=== PATIENT | female | born 1990 | race Caucasian/White ===

== ENCOUNTER 2020-09-25 12:05 | Inpatient (IN) ==
[2020-09-25] MEDS ORDERED: Lactated Ringers 1000 ml BAG 1,000 ML IV ONE ×2 (13:29→16:08)
[2020-09-25] MEDS ORDERED: Buffered Lidocaine 1% SYRIN 1 ml INTRADERM ONE (13:29)
[2020-09-25] MEDS ORDERED: Lactated Ringers 1000 ml BAG 1,000 ML IV SCH ×3 (14:00→20:00)
[2020-09-25 14:15] LABS: ABS Eosinophils 0.1 10^3/ul (0-0.6); ABS Lymphocytes 1.5 10^3/ul (1.0-4.8); ABS Monocytes 0.6 10^3/ul (0-0.8); ABS Neutrophils 7.9 10^3/ul (1.5-7.7); Eosinophil % 1.2 %; Hematocrit 38 % (35-47); Hemoglobin 12.3 g/dL (12.0-16.0); Mean Corpuscular HGB Conc 33 g/dL (31-36); Mean Corpuscular Hemoglobin 27 pg (27-31); Mean Corpuscular Volume 82 fL (80-97); Mean Platelet Volume 7.8 fL (7.4-10.4); Platelet Count 207 10^3/uL (150-450); Red Blood Count 4.62 10^6 /uL (3.70-4.87); Red Cell Distribution Width 15 % (10-15); White Blood Count 10.1 10^3/uL (3.5-10.8)
[2020-09-25 15:06] LABS: Urine Benzodiazepine Screen None Detected (None Detect); Urine Cannabinoids Screen None Detected (None Detect); Urine Opiates Screen None Detected (None Detect)
[2020-09-25] MEDS ORDERED: OBEPIDURAL 250 ML EPIDURAL ONE (15:25)
[2020-09-25] MEDS ORDERED: Sodium Citrate/Citric Acid LIQ 15 ML UDC PO PRN (16:08)
[2020-09-25] MEDS ORDERED: Phenylephrine 40 mcg/mL 10mL (400mcg) SYRINGE IV PUSH PRN ×2 (16:08)
[2020-09-25] MEDS ORDERED: fentaNYL 100 mcg/2 ml 50 MCG/ML VIAL ONE ×2 (16:20→16:53)
[2020-09-25] MEDS ORDERED: fentaNYL 100 mcg/2 ml 50 MCG/ML VIAL IV SLOW PU ONE (16:21)
[2020-09-25] MEDS ORDERED: OBEPIDURAL 250 ML EPIDURAL SCH (17:00)
[2020-09-25] MEDS ORDERED: Oxytocin in LR 20 UNITS/1,000 ML BAG IVPB ONE (18:53)
[2020-09-25] MEDS ORDERED: Dibucaine 1% OINT 28.35 GM TUBE PR PRN (19:55)
[2020-09-25] MEDS ORDERED: Glycerin ADULT 2.4 gm SUPP PR PRN (19:55)
[2020-09-25] MEDS ORDERED: Witch Hazel PAD JAR TOPICAL PRN (19:55)
[2020-09-25] MEDS ORDERED: Oxytocin in LR 20 UNITS/1,000 ML BAG IVPB SCH (20:00)
[2020-09-26] MEDS ORDERED: Lidocaine 1% VIAL 10 MG/ML VIAL ONE (00:33)
[2020-09-26 06:11] LABS: ABS Eosinophils 0.1 10^3/ul (0-0.6); ABS Lymphocytes 1.8 10^3/ul (1.0-4.8); ABS Monocytes 0.8 10^3/ul (0-0.8); Eosinophil % 0.9 %; Hematocrit 30 % (35-47); Mean Corpuscular HGB Conc 34 g/dL (31-36); Mean Corpuscular Hemoglobin 27 pg (27-31); Mean Corpuscular Volume 81 fL (80-97); Mean Platelet Volume 7.5 fL (7.4-10.4); Platelet Count 177 10^3/uL (150-450); Red Blood Count 3.67 10^6 /uL (3.70-4.87); Red Cell Distribution Width 15 % (10-15); White Blood Count 10.8 10^3/uL (3.5-10.8)
[2020-09-27 07:39] VITALS: BP 125/74
== END 2020-09-27 10:15 | disposition home or self-care (01) | DRG 560 ==
LOC: MCHOBOUT 12:05 → MCHOB 12:55
PROVIDERS: ADMIT Midwife; ATTEND Midwife